=== PATIENT | male | born 1980 | race Caucasian/White ===

== ENCOUNTER → 2016-12-08 | Outpatient (CLI) | payer OTHER ==
[2016-01-19 08:09] VITALS: BP 144/94
[~2016-12-08] MED LIST: LEVO500T59 PO; ONDA4TAB12 PO; SULF1TAB23 PO; TETR15DR3 OP; TRAM50TA PO
--- NOTE | 2016-12-08 13:53 | RAD ---
Indication: Left lower quadrant pain for 2 weeks. Crohn's disease. Technique: Axial images and coronal and sagittal reformatted images are provided. Comparison is from August 31, 2015. One or more of the following individualized dose reduction techniques were utilized for this examination: 1. Automated exposure control 2. Adjustment of the mA and/or kV according to patient size 3. Use of iterative reconstruction technique Findings: The lung bases are clear. There is no pleural effusion. The heart is not enlarged. There is fatty infiltration of the liver. Gallbladder is unremarkable. Spleen is not enlarged. The pancreas and the adrenals are unremarkable. There are punctate nonobstructing renal calculi bilaterally. There is no obstructing calculus. Aorta is normal caliber. Small bowel is normal caliber. Normal appendix is noted. There is no definite mural thickening in the colon. Evaluation of solid organs is limited without IV contrast. Evaluation of bowel is limited without IV or oral contrast. Bladder is unremarkable. Prostate calcifications are noted. There are calcified phleboliths. Lobulated density in the left hemipelvis deep to the abdominal wall musculature is similar to prior study and low density, favors a benign process. There are degenerative changes in the spine. Impression: 1. No acute abdominal findings. 2. Nonobstructing renal calculi. 3. Fatty infiltration of the liver.
== END | disposition home or self-care (01) ==
LOC: RAD 13:01
PROVIDERS: ATTEND Physician Assistant
DX: K50.90 Crohn's disease, unspecified, without complications (principal); N20.0 Calculus of kidney; K76.0 Fatty (change of) liver, not elsewhere classified; R10.824 Left lower quadrant rebound abdominal tenderness
CPT/HCPCS: 74176

== ENCOUNTER 2017-01-14 21:25 | Emergency (ER) | payer OTHER ==
[2017-01-14] MEDS ORDERED: LORazepam 2 MG/ML VIAL IV ONE (22:00)
[2017-01-14] MEDS ORDERED: HYDROmorphone PF 1 MG/ML DISP.SYRIN IV ONE (22:00)
[2017-01-14] MEDS ORDERED: HYDROmorphone PF 1 MG/ML DISP.SYRIN IM ONE (23:00)
--- NOTE | 2017-01-14 23:12 | RAD ---
CT of the thoracic and lumbar spine History: Fall, severe back pain. Technique: CT of the thoracic and lumbar spine was performed without intravenous contrast. Axial, sagittal, and coronal 2-D reconstructions were obtained of both the thoracic and lumbar spine. Exposure: One or more of the following individualized dose reduction techniques were utilized for this examination: 1. Automated exposure control 2. Adjustment of the mA and/or kV according to patient size 3. Use of iterative reconstruction technique Findings: There is no evidence of acute traumatic injury involving the thoracic spine. There is accentuation of thoracic kyphosis. 11 well-formed pairs of ribs are seen as well as mildly hypoplastic bilateral 12th ribs. Mild dextroconvex scoliosis of the thoracic spine is seen. Many vertebral levels demonstrate marginal disc osteophytes suggesting DISH. There is no evidence of acute traumatic injury involving the lumbar spine. Alignment appears anatomic. Transitional anatomy is seen with partial sacralization the L5 vertebral level. Degenerative disc disease is seen with posterior disc osteophyte complex at L4-5. Multilevel facet degeneration is present. There is evidence of severe right osseous neural foraminal narrowing at L4-5. Impression: 1. No evidence of acute traumatic injury to the thoracic or lumbar spine. 2. Dextroconvex kyphoscoliosis of the lumbar spine. 3. DISH. Electronically signed by: Torsten Head MD (01/14/2017 11:09 PM)
[2017-01-14] MEDS ORDERED: CYCL-331 PO (23:18)
--- NOTE | 2017-01-14 23:19 | PHYS DOC ---
Past History Past Medical History: Asthma, Diabetes, GERD, Other Past Surgical History: Other Smoking: Non-smoker Alcohol Use: None Drug Use: None Adult General Chief Complaint Chief Complaint: MECHANICAL FALL HPI HPI 36-year-old male now presents to the emergency department complaining of right hip and low back pain after a fall. About 30 minutes prior to arrival patient was walking his dog outside when he lost his balance and fell twisting his low back and bumping his right hip. Patient has had worsening pain since that time and is having difficulty moving because of his bilateral low back pain. Denies incontinence. He is able to move and use both lower extremities. No numbness or weakness. No prior history of spinal abnormality or surgeries or recent fracture or injury. Patient does not take anticoagulants nor is he coagulopathic. Denies head injury or neck pain no chest pain shortness of breath denies abdominal pain. No other complaints Review of Systems Review of Systems Constitutional: Denies fever or chills [] Eyes: Denies change in visual acuity, redness, or eye pain [] HENT: Denies nasal congestion or sore throat [] Respiratory: Denies cough or shortness of breath [] Cardiovascular: No additional information not addressed in HPI [] GI: Denies abdominal pain, nausea, vomiting, bloody stools or diarrhea [] : Denies dysuria or hematuria [] Musculoskeletal: Denies back pain or joint pain [] Integument: Denies rash or skin lesions [] Neurologic: Denies headache, focal weakness or sensory changes [] Endocrine: Denies polyuria or polydipsia [] Current Medications Current Medications Current Medications Medications (Trade) Dose Ordered Sig/[facility] Start Time Stop Time Status Last Admin Dose Admin Hydromorphone HCl (Dilaudid) 1 mg 1X ONCE 01/14/17 23:00 01/14/17 23:01 Lorazepam (Ativan) 2 mg 1X ONCE 01/14/17 22:00 01/14/17 22:01 DC 01/14/17 19:45 2 MG Allergies Allergies Allergies Coded Allergies Type Severity Reaction Last Updated Verified Penicillins Allergy Severe "choking sensations" 08/31/15 No acetaminophen Allergy Severe "sweating, passing out, draining fluids off of me "08/31/15 No oxycodone Allergy Severe "sweating, passing out, draining fluids off of me" 05/06 No Latex, Natural Rubber Allergy Intermediate Itching "red itchy rash" 08/31/15 Yes adhesive tape Allergy Intermediate "skin breakdown" 08/31/15 No Physical Exam Physical Exam Early middle-age male in mild distress complaining of low back pain. Alert and communicative cooperative but anxious Constitutional: Well developed, well nourished, non-toxic appearance. [] HENT: Normocephalic, atraumatic, bilateral external ears normal, oropharynx moist, no oral exudates, nose normal. [] Eyes: PERRLA, EOMI, conjunctiva normal, no discharge. [] Neck: Normal range of motion, no tenderness, supple, no stridor. [] Cardiovascular:Heart rate regular rhythm, no murmur [] Lungs & Thorax: Bilateral breath sounds clear to auscultation [] Abdomen: Bowel sounds normal, soft, no tenderness, no masses, no pulsatile masses. [] Skin: Warm, dry, no erythema, no rash. [] Back: No tenderness, no CVA tenderness. [] Extremities: No tenderness, no cyanosis, no clubbing, ROM intact, no edema. [] Neurologic: Alert and oriented X 3, normal motor function, normal sensory function, no focal deficits noted. [] Psychologic: Affect normal, judgement normal, mood normal. [] Current Patient Data Vital Signs Vital Signs Date Time Temp Pulse Resp B/P (MAP) Pulse Ox O2 Delivery O2 Flow Rate FiO2 01/14/17 21:25 98.3 119 24 100 Room Air EKG EKG [] Radiology/Procedures Radiology/Procedures [] Course & Med Decision Making Course & Med Decision Making Pertinent Labs and Imaging studies reviewed. (See chart for details) Signs and symptoms consistent with bilateral lumbar strain with muscle spasm. No bony tenderness or midline tenderness or deformity. Patient with stable pelvis with mild tenderness right hip area. X-ray pending to rule out fracture though this appears to be clinically less likely. And her exam is benign. Patient's presentation is clearly complicated by a contributory anxiety component. Proved after Ativan and Dilaudid administration. Studies pending to rule out fracture. If unremarkable patient agrees with outpatient follow-up will prescribed muscle relaxant and narcotic pain control. He is aware to use NSAIDs and follow up with PCP in one to 2 days returning immediately for new severe worsening symptoms [] Dragon Disclaimer Dragon Disclaimer This chart was dictated in whole or in part using Voice Recognition software in a busy, high-work load, and often noisy Emergency Department environment. It may contain unintended and wholly unrecognized errors or omissions. Departure Departure: Impression: Primary Impression: Strain of lumbar paraspinal muscle Additional Impressions: Back muscle spasm Anxiety Disposition: HOME, SELF-CARE Condition: IMPROVED Referrals: ANTHONY TUCKER (PCP) Patient Instructions: Anxiety and Panic Attacks, Low Back Strain with Rehab- [facility] Scripts Cyclobenzaprine Hcl (CYCLOBENZAPRINE HCL) 10 Mg Tablet 1 TAB PO TID, #21 TAB Prov: ANNA LEE MD 01/14/17 Problem Qualifiers ANNA LEE MD Jan 14, 2017 23:19
[2017-01-15 00:35] VITALS: BP 134/81
--- NOTE | 2017-01-15 07:09 | RAD ---
Indication: Fall with severe pelvic and right hip pain. Time of exam 2242 hours. Femoral acetabular alignment is normal. The femoral head and neck are intact. No fractures are seen. The rami appear intact. The SI joints and symphysis are nonwidened. Impression: No acute bony abnormality is detected.
== END 2017-01-15 00:35 | disposition home or self-care (01) ==
LOC: ER 21:25
DX: S39.012A Strain of muscle, fascia and tendon of lower back, initial encounter (principal); M62.830 Muscle spasm of back; M25.551 Pain in right hip; F41.9 Anxiety disorder, unspecified; E11.9 Type 2 diabetes mellitus without complications; J45.909 Unspecified asthma, uncomplicated; K21.9 Gastro-esophageal reflux disease without esophagitis; Z88.0 Allergy status to penicillin; Z88.8 Allergy status to other drugs, medicaments and biological substances; Z88.6 Allergy status to analgesic agent; Z91.040 Latex allergy status; W01.0XXA Fall on same level from slipping, tripping and stumbling without subsequent striking against object, initial encounter; Y93.K1 Activity, walking an animal; Y92.89 Other specified places as the place of occurrence of the external cause; Y99.8 Other external cause status
CPT/HCPCS: 72128; 72131; 73502; 96372; 96374; 96375; 99284; J1170; J2060

== ENCOUNTER → 2017-01-15 | Outpatient (CLI) | payer OTHER ==
[~2017-01-15] MED LIST changes: +CYCL-331 PO
[2017-01-15 00:35] VITALS: BP 134/81
--- NOTE | 2017-01-15 16:21 | RAD ---
Indication: Pelvic pain, fall. Time of exam 1608 hours. Femoral acetabular alignment is normal. The joint spaces are well-maintained. The femoral heads and necks are intact. No fractures are seen. Rami are intact. SI joints and symphysis are not widened. Impression: No acute abnormality is detected.
== END | disposition home or self-care (01) ==
LOC: DXRAD 15:51
PROVIDERS: ATTEND Nurse Practitioner Family
DX: R10.2 Pelvic and perineal pain (principal); W19.XXXA Unspecified fall, initial encounter; Y93.89 Activity, other specified; Y92.89 Other specified places as the place of occurrence of the external cause; Y99.8 Other external cause status
CPT/HCPCS: 72170

== ENCOUNTER → 2017-02-07 | Outpatient (CLI) | payer OTHER ==
[2017-01-15 00:35] VITALS: BP 134/81
--- NOTE | 2017-02-08 08:56 | RAD ---
INDICATION: LOW BACK PAIN COMPARISON: None. IMPRESSION: Lumbar spine: 3 views obtained. No definite acute fracture or dislocation. Facet hypertrophy throughout lumbar spine as well as osteophyte formation which can be seen with degenerative changes.
== END | disposition home or self-care (01) ==
LOC: RAD 17:52
PROVIDERS: ATTEND Nurse Practitioner Family
DX: M25.78 Osteophyte, vertebrae (principal)
CPT/HCPCS: 72100

== ENCOUNTER → 2018-02-27 | Outpatient (CLI) | payer OTHER ==
--- NOTE | 2018-02-27 14:22 | RAD ---
History: Low back pain. Comparison: February 07, 2017. Findings: AP and lateral views of the lumbar spine, 3 images. Transitional anatomy is seen with partial sacralization of the L5 level. No acute fracture or acute malalignment is identified. Small anterior disc osteophytes are seen at T12-L1, L1-2, L4-5, and L5-S1. Posterior disc osteophyte complexes are seen at L3-4 and L4-5. No spondylolysis or spondylolisthesis is seen. Mild facet degeneration is seen at lower lumbar spines. Impression: 1. Several levels demonstrate marginal disc osteophytes. The osteophytes could be from degenerative disc disease and/or changes of DISH. 2. Multilevel facet degeneration. Electronically signed by: Torsten Head MD (02/27/2018 2:18 PM) [place] [id number]
== END | disposition home or self-care (01) ==
LOC: DXRAD 13:17
PROVIDERS: ATTEND Physician Assistant
DX: M25.78 Osteophyte, vertebrae (principal); M51.36 Other intervertebral disc degeneration, lumbar region; I10 Essential (primary) hypertension; E11.9 Type 2 diabetes mellitus without complications; E78.00 Pure hypercholesterolemia, unspecified; K21.9 Gastro-esophageal reflux disease without esophagitis
CPT/HCPCS: 72100

== ENCOUNTER 2018-03-13 22:42 | Emergency (ER) | payer OTHER ==
[~2018-03-13] VITALS: Ht 188 cm; Wt 104.1 kg
[2018-03-13] MEDS ORDERED: IV NORMAL SALINE 1,000ML 1,000 ML IV SCH (23:55)
[2018-03-14 00:01] LABS: BASO % 0 % (0-3); EOS # 0.3 x10^3/uL (0.0-0.7); EOS % 3 % (0-3); HEMATOCRIT 44.6 % (39.0-53.0); HEMOGLOBIN 15.2 g/dL (13.0-17.5); LYMPH % 27 % (24-48); MEAN CORPUSCULAR HEMOGLOBIN 25 pg (25-35); MEAN CORPUSCULAR HGB CONC 34 g/dL (31-37); MEAN CORPUSCULAR VOLUME 73 fL (79-100); MONO # 0.7 x10^3/uL (0.0-1.1); MONO % 7 % (0-9); NEUT # 7.1 x10^3uL (1.8-7.7); NEUT % 64 % (31-73); PLATELET COUNT 312 x10^3/uL (140-400); RED BLOOD COUNT 6.07 x10^6/uL (4.30-5.70); RED CELL DISTRIBUTION WIDTH 15.1 % (11.5-14.5); WHITE BLOOD COUNT 11.2 x10^3/uL (4.0-11.0)
[2018-03-14 00:07] LABS: ALBUMIN 3.3 g/dL (3.4-5.0); ALBUMIN/GLOBULIN RATIO 0.8 (1.0-1.7); CALCIUM 9.3 mg/dL (8.5-10.1); CREATININE 0.8 mg/dL (0.7-1.3); GFR 108.2; POTASSIUM 3.5 mmol/L (3.5-5.1); TOTAL BILIRUBIN 0.5 mg/dL (0.2-1.0); TOTAL PROTEIN 7.7 g/dL (6.4-8.2)
[2018-03-14] MEDS ORDERED: IOHEXOL 300 MG/ML 75 ML VIAL. IV ONE (00:45)
[2018-03-14] MEDS ORDERED: CONTRAST GIVEN MC PRN (01:00)
--- NOTE | 2018-03-14 01:43 | RAD ---
INDICATION: DIFFUSE ABDOMINAL PAIN FOR ALMOST 2 WEEKS, NAUSEA COMPARISON: November 2016 TECHNIQUE: Axial CT images obtained through the abdomen and pelvis with contrast. One or more of the following individualized dose reduction techniques were utilized for this examination: 1. Automated exposure control; 2. Adjustment of the mA and/or kV according to patient size; 3. Use of iterative reconstruction technique. FINDINGS: Abdominal aorta not aneurysmal. Adjacent to the left inguinal canal there is a fluid attenuation structure measuring approximately 16 x 38 mm again seen. Could be from causes such as lymphocele, seroma or duplication cyst Scattered prominent lymph nodes in the bilateral groin again seen. Abdominal aorta is not aneurysmal. Liver is low-attenuation. No peripancreatic fluid collection. Scattered prominent lymph nodes are again seen within the abdomen. For example anterior to the right kidney measuring 11 mm short axis. Spleen unremarkable. 2 mm nonobstructive left renal stone without hydronephrosis. Urinary bladder is partially distended. There are a couple of low-density lesions of the right kidney including at the upper pole measuring up to about 16 mm. No right-sided hydronephrosis. The possible appendix measures approximately 6 mm and is coiled on itself. No definite dilated loops of bowel to suggest obstruction. Degenerative changes the hips which is more than typically seen for the patient's age. There are some degenerative changes of spine. Multilevel central canal and neural foraminal stenosis which is more than typically seen for the patient's age. IMPRESSION: 1. No evidence of bowel obstruction. 2. No hydronephrosis. 3. Repeat demonstration of low-density right renal lesion which appears slightly increased in size when compared to 2016. If more complete characterization is desired nonemergent ultrasound could further evaluate. Electronically signed by: Fitz Braxton MD (03/14/2018 1:40 AM) [id number]
[2018-03-14] MEDS ORDERED: ONDANSETRON PF 4 MG/2 ML VIAL. IV ONE ×2 (02:00)
[2018-03-14] MEDS ORDERED: HYDR-971 PO (02:26)
[2018-03-14] MEDS ORDERED: ONDA4TAB10 SL (02:26)
--- NOTE | 2018-03-14 02:27 | PHYS DOC ---
Past History Past Medical History: Anxiety, Diabetes, Other Past Surgical History: Other Smoking: Non-smoker Alcohol Use: None Drug Use: None Adult General Chief Complaint Chief Complaint: ABDOMINAL PAIN HPI HPI Patient is a 37 year old male who presents with complaint of abdominal pain. Patient states his pain [2 weeks ago. The patient states that the pain is mostly in his upper abdomen but radiates towards his right side. The patient states he is followed with his primary doctor who suggested that he may have evidence of pancreatitis. He states that he is supposed to have a CT scan completed in the next week but states that his pain has started to gradually worsen. The patient states he called his primary physician's office and was told to come to the emergency department if he was still having worsening pain. Patient denies any associated fevers. Patient denies history of similar symptoms. The patient states that he is unsure of anything that causes it to get worse. Patient has not taken medications for his symptoms at this time. Review of Systems Review of Systems Constitutional: Denies fever or chills [] Eyes: Denies change in visual acuity, redness, or eye pain [] HENT: Denies nasal congestion or sore throat [] Respiratory: Denies cough or shortness of breath [] Cardiovascular: Denies chest pain or edema[] GI: Abdominal pain, nausea, denies vomiting, bloody stools or diarrhea [] : Denies dysuria or hematuria [] Musculoskeletal: Denies back pain or joint pain [] Integument: Denies rash or skin lesions [] Neurologic: Denies headache, focal weakness or sensory changes [] All other systems were reviewed and found to be within normal limits, except as documented in this note. Current Medications Current Medications Current Medications Medications (Trade) Dose Ordered Sig/[facility] Start Time Stop Time Status Last Admin Dose Admin Fentanyl Citrate (Fentanyl 2ml Vial) 50 mcg PRN Q15MIN PRN 03/14/18 00:00 03/14/18 23:59 03/14/18 01:23 50 MCG Info (Do NOT chart on this entry -- for MONITORING) 1 each PRN DAILY PRN 03/14/18 01:00 03/16/18 00:59 Iohexol (Omnipaque 300 Mg/ml) 75 ml 1X ONCE 03/14/18 00:45 03/14/18 00:46 DC 03/14/18 00:52 75 ML Ondansetron HCl (Zofran) 4 mg 1X ONCE 03/14/18 02:00 03/14/18 02:05 DC 03/14/18 01:54 4 MG Sodium Chloride 1,000 ml @ 1,000 mls/hr Q1H 03/13/18 23:55 03/14/18 00:54 DC 03/14/18 00:01 1,000 MLS/HR Allergies Allergies Allergies Coded Allergies Type Severity Reaction Last Updated Verified Penicillins Allergy Severe "choking sensations" 03/14/18 No acetaminophen Allergy Severe "sweating, passing out, draining fluids off of me "03/14/18 No oxycodone Allergy Severe "sweating, passing out, draining fluids off of me" No Latex, Natural Rubber Allergy Intermediate Itching "red itchy rash" 03/14/18 Yes adhesive tape Allergy Intermediate "skin breakdown" 03/14/18 No Uncoded Allergies Type Severity Reaction Last Updated Verified mushrooms Allergy Severe 03/13/18 Physical Exam Physical Exam Constitutional: Alert, afebrile, appears in [id number] discomfort. [] HENT: Normocephalic, atraumatic, bilateral external ears normal, oropharynx moist, no oral exudates, nose normal. [] Eyes: PERRLA, EOMI, conjunctiva normal, no discharge. [] Neck: Normal range of motion, no tenderness, supple, no stridor. [] Cardiovascular:Heart rate regular rhythm, no murmur [] Lungs & Thorax: Bilateral breath sounds clear to auscultation [] Abdomen: Bowel sounds normal, soft. Epigastric, right upper and lower quadrant tenderness to palpation with guarding, no rebound tenderness, no masses, no pulsatile masses. [] Skin: Warm, dry, no erythema, no rash. [] Back: No tenderness, no CVA tenderness. [] Extremities: No tenderness, no cyanosis, no clubbing, ROM intact, no edema. [] Neurologic: Alert and oriented X 3, normal motor function, normal sensory function, no focal deficits noted. [] Current Patient Data Vital Signs Vital Signs Date Time Temp Pulse Resp B/P (MAP) Pulse Ox O2 Delivery O2 Flow Rate FiO2 03/13/18 22:45 98.0 102 20 98 Room Air Lab Results Laboratory Tests Test 03/13/18 23:20 White Blood Count 11.2 x10^3/uL (4.0-11.0) H Red Blood Count 6.07 x10^6/uL (4.30-5.70) H Hemoglobin 15.2 g/dL (13.0-17.5) Hematocrit 44.6 % (39.0-53.0) Mean Corpuscular Volume 73 fL (79-100) L Mean Corpuscular Hemoglobin 25 pg (25-35) Mean Corpuscular Hemoglobin Concent 34 g/dL (31-37) Red Cell Distribution Width 15.1 % (11.5-14.5) H Platelet Count 312 x10^3/uL (140-400) Neutrophils (%) (Auto) 64 % (31-73) Lymphocytes (%) (Auto) 27 % (24-48) Monocytes (%) (Auto) 7 % (0-9) Eosinophils (%) (Auto) 3 % (0-3) Basophils (%) (Auto) 0 % (0-3) Neutrophils # (Auto) 7.1 x10^3uL (1.8-7.7) Lymphocytes # (Auto) 3.0 x10^3/uL (1.0-4.8) Monocytes # (Auto) 0.7 x10^3/uL (0.0-1.1) Eosinophils # (Auto) 0.3 x10^3/uL (0.0-0.7) Basophils # (Auto) 0.0 x10^3/uL (0.0-0.2) Sodium Level 145 mmol/L (136-145) Potassium Level 3.5 mmol/L (3.5-5.1) Chloride Level 106 mmol/L (98-107) Carbon Dioxide Level 31 mmol/L (21-32) Anion Gap 8 (6-14) Blood Urea Nitrogen 9 mg/dL (8-26) Creatinine 0.8 mg/dL (0.7-1.3) Estimated GFR (Cockcroft-Gault) 108.2 BUN/Creatinine Ratio 11 (6-20) Glucose Level 100 mg/dL (70-99) H Calcium Level 9.3 mg/dL (8.5-10.1) Total Bilirubin 0.5 mg/dL (0.2-1.0) Aspartate Amino Transferase (AST) 24 U/L (15-37) Alanine Aminotransferase (ALT) 56 U/L (16-63) Alkaline Phosphatase 168 U/L (46-116) H Total Protein 7.7 g/dL (6.4-8.2) Albumin 3.3 g/dL (3.4-5.0) L Albumin/Globulin Ratio 0.8 (1.0-1.7) L Lipase 122 U/L (73-393) EKG EKG Not performed[] Radiology/Procedures Radiology/Procedures [address] [id number] IMAGING REPORT Signed PATIENT: ANGEL GARY V ACCOUNT: [id number] : 1980 LOCATION: ER AGE: 37 SEX: M EXAM STATUS: REG ER ORD. PHYSICIAN: DAMIEN ANDRE MD REASON: epigastric and right upper quadrant pain PROCEDURE: CT ABD PELV W/ IV CONTRST ONLY INDICATION: DIFFUSE ABDOMINAL PAIN FOR ALMOST 2 WEEKS, NAUSEA COMPARISON: November 2016 TECHNIQUE: Axial CT images obtained through the abdomen and pelvis with contrast. One or more of the following individualized dose reduction techniques were utilized for this examination: 1. Automated exposure control; 2. Adjustment of the mA and/or kV according to patient size; 3. Use of iterative reconstruction technique. FINDINGS: Abdominal aorta not aneurysmal. Adjacent to the left inguinal canal there is a fluid attenuation structure measuring approximately 16 x 38 mm again seen. Could be from causes such as lymphocele, seroma or duplication cyst Scattered prominent lymph nodes in the bilateral groin again seen. Abdominal aorta is not aneurysmal. Liver is low-attenuation. No peripancreatic fluid collection. Scattered prominent lymph nodes are again seen within the abdomen. For example anterior to the right kidney measuring 11 mm short axis. Spleen unremarkable. 2 mm nonobstructive left renal stone without hydronephrosis. Urinary bladder is partially distended. There are a couple of low-density lesions of the right kidney including at the upper pole measuring up to about 16 mm. No right-sided hydronephrosis. The possible appendix measures approximately 6 mm and is coiled on itself. No definite dilated loops of bowel to suggest obstruction. Degenerative changes the hips which is more than typically seen for the patient's age. There are some degenerative changes of spine. Multilevel central canal and neural foraminal stenosis which is more than typically seen for the patient's age. IMPRESSION: 1. No evidence of bowel obstruction. 2. No hydronephrosis. 3. Repeat demonstration of low-density right renal lesion which appears slightly increased in size when compared to 2016. If more complete characterization is desired nonemergent ultrasound could further evaluate. Electronically signed by: Nino Telles MD (03/14/2018 1:40 AM) [id number] DICTATED AND SIGNED BY: NINO TELLES MD DATE: 03/14/18 0125 CC: DAMIEN ANDRE MD; ANTHONY TUCKER ~ [] Course & Med Decision Making Course & Med Decision Making Pertinent Labs and Imaging studies reviewed. (See chart for details) Lab work and CT imaging are unremarkable at this time. Patient was treated with IV fluids, Bentyl, and Zofran. Spoke with the patient regarding further plan of care area the patient states that his symptoms have improved and he would like to go home at this time. This is not unreasonable as I do not see any emergent or surgical causes for the patient's pain at this time. Patient was prescribed [place] and Zofran for outpatient treatment. Advised clear liquid diet and recommended follow-up tomorrow with primary doctor for reevaluation. Patient was also referred to Dr. East for follow-up in 1-2 weeks for further evaluation of cause of pain symptoms. Advised return to emergency department for any worsening symptoms. Patient was understanding and in agreement with treatment plan. Dragon Disclaimer Dragon Disclaimer This electronic medical record was generated, in whole or in part, using a voice recognition dictation system. Departure Departure: Impression: Primary Impression: Abdominal pain Disposition: 01 HOME, SELF-CARE Condition: IMPROVED Referrals: ANTHONY TUCKER (PCP) Patient Instructions: Abdominal Pain Additional Instructions: Follow-up with your primary doctor tomorrow for reevaluation. You've also been referred to Dr. East of gastroenterology to follow in the next 1-2 weeks for further evaluation of your symptoms. Return to the emergency department for any worsening symptoms. Scripts Ondansetron (ZOFRAN ODT) 4 Mg Tab.rapdis 1 TAB SL Q8HRS PRN for NAUSEA/VOMITING, #15 TAB Prov: DAMIEN ANDRE MD 03/14/18 Hydrocodone Bit/Acetaminophen (NORCO 5-325 TABLET) 1 Each Tablet 1-2 TAB PO Q4-6HRS PRN for PAIN, #20 TAB Prov: DAMIEN ANDRE MD 03/14/18 Problem Qualifiers Primary Impression: Abdominal pain Abdominal location: unspecified location Qualified Codes: R10.9 - Unspecified abdominal pain DAMIEN ANDRE MD Mar 14, 2018 02:26
[2018-03-14 02:30] VITALS: BP 104/67
[2018-03-14] MEDS ORDERED: ONDANSETRON 4MG ODT 4TABLET STARTPACK. PO ONE ×2 (02:30→02:45)
== END 2018-03-14 02:42 | disposition home or self-care (01) ==
LOC: ER 22:42
DX: R10.13 Epigastric pain (principal); R10.11 Right upper quadrant pain; R10.31 Right lower quadrant pain; N28.9 Disorder of kidney and ureter, unspecified; F41.9 Anxiety disorder, unspecified; E11.9 Type 2 diabetes mellitus without complications; Z88.0 Allergy status to penicillin; Z88.6 Allergy status to analgesic agent; Z88.5 Allergy status to narcotic agent; Z91.040 Latex allergy status
CPT/HCPCS: 36415; 74177; 80053; 83690; 85025; 96374; 96375; 96376; 99285; J2405; J3010; Q0162; Q9967; J7030

== ENCOUNTER → 2018-04-18 | Outpatient (CLI) | payer OTHER ==
[~2018-04-18] MED LIST changes: +HYDR-971 PO; +ONDA4TAB10 SL
--- NOTE | 2018-04-19 09:54 | RAD ---
AP and lateral bilateral knee radiographs 04/18/2018 CLINICAL HISTORY: Left knee pain. AP and lateral digital radiographs of both knees were obtained. No fracture or dislocation of either knee is seen. Mild degenerative changes are seen involving all 3 compartments of both knees. These consist of mild joint compartment narrowing, subchondral sclerosis and subchondral sclerosis. Mild to moderate enthesophyte formation is seen involving the anterior calcaneus bilaterally. There is no radiographic evidence of a joint effusion involving either knee. IMPRESSION: Degenerative changes are seen involving both knees as outlined above. No acute osseous abnormality is seen. Electronically signed by: Carlos Oakes MD (04/19/2018 9:51 AM) [facility]
== END | disposition home or self-care (01) ==
LOC: DXRAD 16:41
PROVIDERS: ATTEND Physician Assistant
DX: M17.0 Bilateral primary osteoarthritis of knee (principal)
CPT/HCPCS: 73560

== ENCOUNTER → 2018-09-02 | Outpatient (CLI) | payer OTHER ==
[~2018-09-02] MED LIST changes: +HYDR-3165 PO; -HYDR-971 PO
--- NOTE | 2018-09-02 16:23 | RAD ---
Examination: CT ABDOMEN PELVIS WO CONTRAST History: Bilateral flank pain, hematuria Comparison/Correlation: 03/04/2018 CT abdomen and pelvis with IV contrast Findings: Axial images of the abdomen and pelvis were obtained without contrast. Sagittal and coronal reformatted images were provided. Visualized lung bases are clear. Diffuse fatty infiltration of the liver is present. Spleen, adrenal glands, and pancreas are unremarkable. Right renal superior pole cortical calcification measuring 0.6 cm noted. Low-attenuation cyst superior to this calcification is again seen. It is too small to characterize and lack of IV contrast limits assessment as well. Punctate left renal inferior pole calyceal calculus is present. No enlarged abdominal or pelvic lymph nodes. No hydroureter. Urinary bladder is unremarkable. Appendix is normal. The bowel is unremarkable. Exaggerated lordosis of lumbar spine noted. Transitional L5 vertebra noted. Impression: Punctate nonobstructive left renal calculus. No findings of mass lesion on this noncontrast exam. Consider further evaluation if mass lesion is a persistent concern. Fatty infiltration of the liver. Electronically signed by: Joes Shepherd MD (09/02/2018 4:20 PM) [id number]
== END | disposition home or self-care (01) ==
LOC: CT 15:15
PROVIDERS: ATTEND Registered Nurse
DX: N20.0 Calculus of kidney (principal); K76.0 Fatty (change of) liver, not elsewhere classified; M40.46 Postural lordosis, lumbar region; N28.89 Other specified disorders of kidney and ureter
CPT/HCPCS: 74176

== ENCOUNTER → 2021-01-27 | Outpatient (CLI) | payer OTHER ==
[~2021-01-27] MED LIST changes: +ALBU2.5V8 INH; +ATORVASTATIN CA80 MG PO; -TETR15DR3 OP; +TETR15DR73 OP
--- NOTE | 2021-01-27 15:12 | RAD ---
HEPATOBILIARY SCAN WITH EJECTION FRACTION History: Reason: ABD. PAIN /cholecystitis. COMPARISON: CT abdomen and pelvis without contrast 09/02/2018. Procedure: Serial static images are obtained of the liver and biliary system in the frontal projectio n following IV administration of 5 mCi of Technetium 99m Choletec. After filling of the gallbladder , fatty meal protocol is utilized, patient drank 8 oz of Ensure and returned to supine position, juan pasha imaging continued x58 minutes. The gallbladder ejection fraction was calculated. Findings: There is prompt hepatic clearance of tracer from the blood pool. There is homogeneous distribution th roughout the liver. There is normal filling of the gallbladder and normal emptying into the biliary s ystem and small bowel. Tracer in gallbladder is confirmed with a right lateral static image. The gall bladder ejection fraction measures 79% (normal gallbladder EF is 35% or greater). IMPRESSION: 1. The cystic duct and common bile duct are patent. Negative for acute cholecystitis. 2. The gallbladder ejection fraction is normal. Electronically signed by: Jensen Feranndez MD (01/27/2021 3:10 PM) [id number]
== END ==
LOC: NM 09:23
PROVIDERS: ATTEND Physician Assistant
DX: K81.9 Cholecystitis, unspecified (principal); R10.9 Unspecified abdominal pain
CPT/HCPCS: 78227; A9537